=== PATIENT | female | born 1950 | race Caucasian/White ===

== ENCOUNTER 2024-01-17 13:13 | Outpatient (RCR) | payer MEDICARE, OTHER, SELFPAY ==
--- NOTE | 2024-01-17 15:02 | OTOPDC ---
Assessment and note entered by Ziggy Burk, OTR/Nick, [facility] Mobility Evaluation Subjective Information Patient presents for mobility evaluation today. She presents on a scooter that is 5+ years old. She reports various malfunctioning issues with the scooter. It appears worn and cracked. She states it does not hold a charge. She uses the scooter for all mobility in and outside of the home. She is present today with her daughter to assists her taking the scooter apart when transporting the scooter in their van. Please refer to scanned mobility evaluation form for more details on patient's history and diagnoses. Assessment OT Clinical Summary Denise is unable to safety and independently ambulate household distances due to impairments with pain, weakness, fatigue, decreased joint motion, shortness of breath/decreased respiratory function, and poor standing balance and standing tolerance. She is at high risk for falls due to decreased standing balance. Denise demonstrates significant functional mobility limitations that impair their ability to safely participate in mobility-related ADLs. These limitations cannot be sufficiently resolved by the use of an appropriate fitting cane, walker, or manual wheelchair. Due to back, shoulder, and knee pain as well as compromised respiratory status, she is unable to propel a manual wheelchair, use a walker , or a cane. She has been using a scooter for 5+ years and demonstrates intact skills to continue to safely use a scooter for her mobility. She is able to transfer safely and has intact hand function for the tiller system. A new scooter will facilitate optimal safety, independence, and participation in mobility related ADLs. Without the use of a scooter for a mobility device this patient would be chair or bed bound. This patient is willing, able and capable to use recommended equipment. Plan of Care OT Services Indicated No
== END 2024-04-01 10:30 | disposition home or self-care (01) ==
LOC: ANHOT 13:13
DX: Z74.09 Other reduced mobility (principal)
CPT/HCPCS: 97166